=== PATIENT | female | born 1980 | race Caucasian/White ===

== ENCOUNTER 2024-07-07 03:37 | Emergency (ER) | payer BC, SELFPAY ==
[2024-07-07 03:41] VITALS: BP 129/94
[2024-07-07 03:54] VITALS: BMI 30.4
[2024-07-07] MEDS: ZOFRAN 4 MG IV ×2 (04:05→07:34)
[2024-07-07] MEDS: TORADOL 30 MG IV (04:06)
[2024-07-07 04:31] LABS: % Basophils 0.8 % (0-2); % Eosinophils 1.6 % (0-6); % Immature Granulocytes 0.1 % (0-0.5); % Lymphocytes 44.2 % (20.5-51.1); % Monocytes 10.3 % (1.7-9.3); Absolute Basophils 0.1 10^3/uL (0-0.2); Absolute Eosinophils 0.1 10^3/uL (0-0.7); Absolute Lymphocytes 3.3 10^3/uL (1.2-3.4); Absolute Monocytes 0.8 10^3/uL (0.1-0.6); Absolute Neutrophils 3.3 10^3/uL (1.4-6.5); Hematocrit 44.5 % (37.0-47.0); Mean Corp Hgb Conc. 33.7 g/dL (33.0-37.0); Mean Corpuscular Hgb 31.8 pg (27.0-31.0); Mean Corpuscular Volume 94.5 fL (81.0-99.0); Mean Platelet Volume 10.3 fL (7.4-10.4); Nucleated Red Blood Cells % 0 %; Platelet Count 267 10^3/uL (130-400); Red Blood Cell Count 4.71 10^6/uL (4.20-5.40); Red Cell Dist. Width 11.9 % (11.5-14.5); Urine Albumin Trace (Neg - Trace); Urine Bilirubin Negative (Negative); Urine Character Slightly Cloudy (Clear); Urine Color Amber; Urine Glucose Negative (Negative); Urine Ketone Negative (Negative); Urine Leukocyte Negative (Negative); Urine Nitrite Negative (Negative); Urine Occult Blood 4+ (Negative); Urine Urobilinogen Negative (Neg - 1+); White Blood Cell Count 7.6 10^3/uL (4.8-10.8)
[2024-07-07 04:59] LABS: HCG, Serum Qualitative Screen Negative
[2024-07-07 05:01] LABS: ALT (SGPT) 15 U/L (0-35); AST (SGOT) 20 U/L (14-36); Albumin 4.4 g/dl (3.5-5.0); Alkaline Phosphatase 73 U/L (38-126); Blood Urea Nitrogen 18 mg/dl (7-17); Calcium 9.8 mg/dl (8.4-10.2); Carbon Dioxide 25 mmol/L (22-30); Chloride 102 mmol/L (98-107); Estimated Creatinine Clearance 73 ml/min; Glucose 116 mg/dl (70-99); Sodium 138 mmol/L (135-145); Total Bilirubin 0.8 mg/dl (0.2-1.3); Total Protein 7.1 g/dl (6.3-8.2); eGFR > 60.00
[2024-07-07 05:21] LABS: Urine Bacteria Moderate (Negative); Urine Red Blood Cell >100 /HPF (0-2)
[2024-07-07 05:37] VITALS: BP 118/80
[2024-07-07] MEDS: MORPHINE SULFATE 4 MG IV (05:56)
[2024-07-07 06:04] VITALS: BP 120/72
--- NOTE | 2024-07-07 06:59 | ED.GENMED ---
History of Present Illness
General
Chief Complaint: Flank Pain
Source: patient
Exam Limitations: none
Time Seen by Provider: 07/07/24 05:41
Nursing documentation reviewed up to this point in time: agreed with
History of Present Illness
History of Present Illness:
44-year-old female presents emergency department due to left flank pain that began 30 minutes prior to arrival. This feels similar to a prior kidney stone. She denies any fevers. She did complain of nausea.
Past History
Past History
ED Past Medical History: Other (Kidney stones)
ED Past Surgical History: None
Social History
Tobacco: Non-smoker
Alcohol: None
Drug: None
Personal:
Living: with family
Review of Systems
Review of Systems
Allergies reviewed?: Yes
All Other Systems: Not applicable
Constitutional: Reports no symptoms
EENT: Reports no symptoms
Respiratory: Reports no symptoms
Cardiac: Reports no symptoms
ABD/GI: Reports nausea
: Reports flank pain
Musculoskeletal: Reports no symptoms
Skin: Reports no symptoms
Neurological: Reports no symptoms
Endocrine: Reports no symptoms
Hematologic/Lymphatic: Reports no symptoms
Psychiatric: Reports no symptoms
Phy Exam
Physical Exam
Physical Exam:
Physical Exam
General: no apparent distress, not acutely ill
Neck: supple. no meningeal signs. normal posterior pharynx
Heart: s1/s2 regular rate and rhythm, no murmur. equal radial
pulses.
HEENT: Pupils equal round reactive to light, EOMI
Lungs: no acute respiratory distress. clear bilaterally
Abdomen: normal bowel sounds. not tender. no CVAT
Neuro: alert and oriented. no focal neurological deficits cranial nerves II through XII intact
Skin: no rash
Psychiatric: well kept. interactive and cooperative
Extremities: no edema. no calf tenderness. negative homans. good distal pulses
Course
Orders/Labs/Results
Orders:
Orders
07/07/24 03:46
Test Result ONCE
07/07/24 04:03
Ketorolac [Toradol] 30 mg .ROUTE .STK-MED ONE
Ondansetron Injectable [Zofran] 4 mg .ROUTE .STK-MED ONE
07/07/24 04:04
Ondansetron Injectable [Zofran] 4 mg IV NOW STA
07/07/24 04:06
Ketorolac [Toradol] 30 mg IV NOW STA
07/07/24 04:12
Complete Blood Count/With Diff Urgent
Comprehensive Metabolic Panel Urgent
HCG, Serum Qualitative Screen Urgent
Urinalysis Reflex To Culture Urgent
Date Specimen was Collected: 07/07/24
Time Specimen was Collected: 03:45
Urine Microscopic Reflex Cult Urgent
Urine Culture Urgent
CODY Source: U
Specimen Description:
Date Specimen was Collected: 07/07/24
Time Specimen was Collected: 03:45
07/07/24 04:18
CT Abd/pel Without Iv Or Oral Urgent
Comment:
Reason For Exam: flank pain
07/07/24 05:52
Morphine Sulfate 4 mg .ROUTE .STK-MED ONE
07/07/24 05:56
Morphine Sulfate 4 mg IV NOW STA
Abnormal Lab Results
07/07/24
04:12
MCH 31.8 H pg
(27.0-31.0)
Absolute Monos (auto) 0.8 H 10^3/uL
(0.1-0.6)
Monocytes % 10.3 H %
(1.7-9.3)
BUN 18 H mg/dl
(7-17)
Glucose 116 H mg/dl
(70-99)
Ur Occult Blood Reflex 4+ A
(Negative)
Urine RBC >100 A /HPF
(0-2)
Urine Bacteria (Reflex) Moderate A
(Negative)
07/07/24 04:12
07/07/24 04:12
Vital Signs
Initial and Last Documented VS:
Initial Vital Signs
Temp Pulse Resp BP Pulse Ox
97.4 F 88 20 129/94 99
07/07/24 03:41 07/07/24 03:41 07/07/24 03:41 07/07/24 03:41 07/07/24 03:41
Last Documented Vital Signs
Temp Pulse Resp BP Pulse Ox
98.1 F 89 20 120/72 99
07/07/24 05:37 07/07/24 06:04 07/07/24 06:04 07/07/24 06:04 07/07/24 06:04
MDM/Problems Addressed
Differential Diagnosis Includes:
UTI, kidney stone
MDM/Problems Addressed:
44 yo female with left ureteral calculus. No UTI. Stable for discharge. Pain controlled.
*Radiology
Radiology exam reviewed: radiology read reviewed (CT abdomen pelvis shows 3 mm calculus at left UVJ)
*Pulse Oximetry
Patient hypoxic: no
*Critical Care Note
Total Time (30-74mins, 75-104mins- exclusive of procedures): Not Applicable
Patient Management
Social determinants of health affecting care: Living situation and Strong social support
Escalation/DeEscalation of care consider admission/obs:
Admit not indicated
ED Attending Note
-
Portions of this chart may have been created with voice recognition software.� Occasional wrong word or��sound alike� substitutions may have occurred due to the inherent limitations of voice recognition software.
Discharge Plan
Departure
Patient Disposition: Home (Routine Discharge)
Date of Disposition: 07/07/24
Time of Disposition: 07:06
Patient with high blood pressure during this ER visit?: Yes
Condition: Good
Discharge Problem:
Calculus of left ureter
Instructions: Renal Colic (DC)
Prescriptions:
No Action
No Current Medications
0
Referrals:
Arnulfo Gandhi MD [Active] - Call in 1-3 days for appt
Jose Muir MD [Family Provider] -
Interventions
Interventions:
*Risk Screen - Suicide Last Done: 07/07/24 03:41
*General Assessment Last Done: 07/07/24 03:41
*Neglect/Abuse Screening Last Done: 07/07/24 03:41
ED- Fall Risk Assessment Last Done: 07/07/24 03:41
*ED COVID-19 Vaccine History Last Done: 07/07/24 03:41
RM-Nygslt-Pnrffncsny Assessment Last Done: 07/07/24 04:24
ED-Female Genitourinary Assessment Last Done: 07/07/24 04:26
Discharge Date and Time
Print Language: UKRAINIAN
[2024-07-07] MEDS: TORADOL 15 MG IV (07:06)
[2024-07-07] MEDS: NSS 1000 IV (07:50)
[2024-07-07] MEDS: DILAUDID 0.5 MG IV (08:18)
--- NOTE | 2024-07-07 08:24 | EDRN ---
Pt reports pain has not lessened and is still experiencing nausea, Dr. Choi made aware. SEE MAR
== END 2024-07-07 11:55 | disposition home or self-care (01) ==
LOC: EMR 03:37
PROVIDERS: Student in an Organized Health Care Education/Training Program; EMERGENCY PHYSICIAN Emergency Medicine; FAMILY PHYSICIAN Internal Medicine
DX: N13.2 Hydronephrosis with renal and ureteral calculous obstruction (principal)
CPT/HCPCS: 96374; 96375; 96376; 99284; 74176; 80053; 81003; 81015; 84703; 85025; 87086